=== PATIENT | female | born 1960 | race Caucasian/White ===

== ENCOUNTER 2019-05-09 17:45 | Inpatient (IN) | payer OTHER ==
[~2019-05-09] VITALS: Ht 160 cm; Wt 111.9 kg
[~2019-05-09 17:45] MED LIST: AMLO-150 PO; ASPI-496 PO; ATOR40TA78 PO; CARV-39 PO; CLON0.1T22 PO; FURO20TA3 PO; GABA300C10 PO; GLYB5TAB3 PO; INSU100I32 SC; IVOKANA PO; LEVO175T5 PO; LISI-170 PO; METF10002 PO; MULT-642 PO; MULT-806 PO; POTASSIUM; PRAM0.12 PO; PRAM0.125 PO; [UNRECOGNIZED DRUG - OTHER] PO
[2019-05-09] MEDS ORDERED: METH500T7 PO (18:18)
[2019-05-09] MEDS ORDERED: LOSA50TA14 PO (18:18)
[2019-05-09] MEDS ORDERED: FUROSEMIDE 40 MG/4 ML ONE (18:24)
[2019-05-09] MEDS ORDERED: FUROSEMIDE 40 MG/4 ML IVPush ONE (18:30)
[2019-05-09 18:38] LABS: BASOPHILS # (AUTO) 0.01 x10^3/uL (0-0.1); BASOPHILS % (AUTO) 0 % (0-1); EOSINOPHILS # (AUTO) 0.26 x10^3/uL (0-0.4); EOSINOPHILS % (AUTO) 3 % (1-7); LYMPHOCYTES # (AUTO) 1.21 x10^3/uL (1-3.4); LYMPHOCYTES % (AUTO) 12 % (22-44); MD NO; MEAN CORPUSCULAR HEMOGLOBIN 32.9 pg (27.0-34.8); MEAN CORPUSCULAR HGB CONC 33.6 g/dL (32.4-35.8); MEAN CORPUSCULAR VOLUME 97.9 fL (80-100); MEAN PLATELET VOLUME 7.9 fL (7.4-10.4); MONOCYTES # (AUTO) 0.64 x10^3/uL (0.2-0.8); MONOCYTES % (AUTO) 6 % (2-9); NEUTROPHILS # (AUTO) 8.15 x10^3/uL (1.8-6.8); NEUTROPHILS % (AUTO) 79 % (42-75); PLATELET COUNT 268 x10^3/uL (130-400); RED BLOOD COUNT 3.88 x10^6/uL (3.82-5.3); RED CELL DISTRIBUTION WIDTH 14.1 % (9.6-15.2)
[2019-05-09 18:46] LABS: ALANINE AMINOTRANSFERASE 27 U/L (12-78); ALBUMIN 3.5 g/dL (3.4-5.0); ANION GAP 7 mmol/L (5-15); CALCIUM 8.5 mg/dL (8.5-10.1); CHLORIDE 106 mmol/L (98-107)
[2019-05-09 18:51] LABS: ALKALINE PHOSPHATASE 86 U/L (45-117); BILIRUBIN,TOTAL 0.7 mg/dL (0.2-1.0); CREATININE 2.42 mg/dL (0.55-1.02); TOTAL PROTEIN 6.8 g/dL (6.4-8.2); TROPONIN I < 0.015 ng/mL (0.000-0.045)
--- NOTE | 2019-05-09 19:45 | NUR ---
PT WITH NON CONTRACTED INSURANCE. CALLED [facility] [place], SPOKE WITH RUSTAM WHO GAVE VERBAL DENIAL FOR TRANSFER AT 1942. CALLED [facility], SPOKE WITH INDIRA COOLEY, WHO GAVE VERBAL DENIAL FOR TRANSFER OF PT.
--- NOTE | 2019-05-09 19:57 | NUR ---
PT UPDATED ON POC. PT PROVIDED CRACKERS. INTERNAL MED MD AT BEDSIDE TO ASSESS AND ADMIT PATIENT.
[2019-05-09] MEDS ORDERED: hydrALAzine 20 MG/ML, 1ML IVPush PRN (20:30)
[2019-05-09 20:47] LABS: TROPONIN I < 0.015 ng/mL (0.000-0.045)
[2019-05-09 21:00] LABS: HEMOGLOBIN A1C 6.6 % (4.2-6.3)
[2019-05-09] MEDS ORDERED: LEVOTHYROXINE 137 MCG TABLET PO SCH (21:00)
[2019-05-09] MEDS: INSULIN LISPRO 100 UNITS/ML, PEN SQ-INSULIN SCH (21:00)
[2019-05-09 21:13] VITALS: BP 177/84
[2019-05-09] MEDS: NICOTINE 14MG/24 HR PATCH.TD24 TD SCH (21:46)
[2019-05-09] MEDS: METHOCARBAMOL 500 MG TABLET PO SCH (21:46)
[2019-05-09] MEDS: GABAPENTIN 300 MG CAPSULE PO SCH (21:46)
[2019-05-09] MEDS: HEPARIN 5,000 UNITS/ML, 1ML SQ SCH (21:47)
[2019-05-09] MEDS: CARVEDILOL 25 MG TABLET PO SCH (21:47)
[2019-05-09] MEDS: ATORVASTATIN 40 MG TABLET PO SCH (21:47)
[2019-05-09 22:17] VITALS: BP 177/84
[2019-05-10 01:20] VITALS: BP 158/85
[2019-05-10 02:56] LABS: BASOPHILS # (AUTO) 0.03 x10^3/uL (0-0.1); BASOPHILS % (AUTO) 0 % (0-1); EOSINOPHILS # (AUTO) 0.16 x10^3/uL (0-0.4); EOSINOPHILS % (AUTO) 2 % (1-7); LYMPHOCYTES # (AUTO) 0.83 x10^3/uL (1-3.4); LYMPHOCYTES % (AUTO) 9 % (22-44); MD NO; MEAN CORPUSCULAR HEMOGLOBIN 32.4 pg (27.0-34.8); MEAN CORPUSCULAR HGB CONC 32.7 g/dL (32.4-35.8); MEAN PLATELET VOLUME 8.4 fL (7.4-10.4); MONOCYTES # (AUTO) 0.46 x10^3/uL (0.2-0.8); MONOCYTES % (AUTO) 5 % (2-9); NEUTROPHILS # (AUTO) 7.98 x10^3/uL (1.8-6.8); NEUTROPHILS % (AUTO) 84 % (42-75); PLATELET COUNT 259 x10^3/uL (130-400); RED BLOOD COUNT 3.98 x10^6/uL (3.82-5.3); RED CELL DISTRIBUTION WIDTH 14.1 % (9.6-15.2)
[2019-05-10 03:09] LABS: ALANINE AMINOTRANSFERASE 28 U/L (12-78); ALBUMIN 3.5 g/dL (3.4-5.0); ANION GAP 7 mmol/L (5-15); CALCIUM 8.6 mg/dL (8.5-10.1); CHLORIDE 106 mmol/L (98-107)
[2019-05-10 03:12] LABS: ALKALINE PHOSPHATASE 87 U/L (45-117); BILIRUBIN,TOTAL 0.7 mg/dL (0.2-1.0); CHOL/HDL RATIO 3.2; CHOLESTEROL, TOTAL 104 mg/dL (140-239); CREATININE 2.52 mg/dL (0.55-1.02); HDL CHOL % 32 % (28-40); HDL CHOLESTEROL (DIRECT) 33 mg/dL (40-60); LDL CHOLESTEROL,CALCULATED 47 mg/dL (54-169); LDL/HDL RATIO 1.4 (0.5-3.0); TRIGLYCERIDES 122 mg/dL (50-200); VLDL CHOLESTEROL 24 mg/dL (0-25)
[2019-05-10 03:52] LABS: TROPONIN I < 0.015 ng/mL (0.000-0.045)
[2019-05-10] MEDS: ASPIRIN 325 MG TABLET EC PO SCH (05:24)
[2019-05-10] MEDS: HEPARIN 5,000 UNITS/ML, 1ML SQ SCH ×3 (05:25→21:10)
[2019-05-10] MEDS: FUROSEMIDE 40 MG/4 ML IV SCH ×2 (06:25→16:52)
[2019-05-10 06:51] VITALS: BP 160/88
[2019-05-10] MEDS: INSULIN LISPRO 100 UNITS/ML, PEN SQ-INSULIN SCH ×4 (07:00→22:02)
[2019-05-10] MEDS: INSULIN DEGLUDEC HOMEINJ SCH (09:00)
[2019-05-10] MEDS: [UNRECOGNIZED DRUG - OTHER] HOMEINJ SCH (09:00)
[2019-05-10] MEDS ORDERED: TEMPLATE NON-FORMULARY MED. (Insulin Degludec (Tresiba Flextouch U-100) 20 UNITS) SC SCH (09:00)
[2019-05-10] MEDS: METHOCARBAMOL 500 MG TABLET PO SCH ×2 (10:02→21:10)
[2019-05-10] MEDS: MULTIVITAMIN 1 TABLET PO SCH (10:04)
[2019-05-10] MEDS: AMLODIPINE 10 MG TAB PO SCH (10:05)
[2019-05-10] MEDS: GABAPENTIN 300 MG CAPSULE PO SCH ×3 (10:05→21:10)
[2019-05-10] MEDS: CARVEDILOL 25 MG TABLET PO SCH ×2 (10:06→21:10)
[2019-05-10 12:22] VITALS: BP 162/68
[2019-05-10] MEDS: LOSARTAN 50MG TABLET PO SCH (13:29)
[2019-05-10 18:50] VITALS: BP 168/73
[2019-05-10] MEDS: LEVOTHYROXINE 150 MCG TABLET PO SCH (21:10)
[2019-05-10] MEDS: ATORVASTATIN 40 MG TABLET PO SCH (21:10)
[2019-05-10] MEDS: NICOTINE 14MG/24 HR PATCH.TD24 TD SCH (21:11)
[2019-05-11 00:20] VITALS: BP 166/70
[2019-05-11] MEDS: ASPIRIN 325 MG TABLET EC PO SCH (05:11)
[2019-05-11] MEDS: HEPARIN 5,000 UNITS/ML, 1ML SQ SCH ×3 (05:12→20:18)
[2019-05-11 05:34] LABS: BASOPHILS # (AUTO) 0.02 x10^3/uL (0-0.1); BASOPHILS % (AUTO) 0 % (0-1); EOSINOPHILS # (AUTO) 0.19 x10^3/uL (0-0.4); EOSINOPHILS % (AUTO) 2 % (1-7); LYMPHOCYTES # (AUTO) 0.93 x10^3/uL (1-3.4); LYMPHOCYTES % (AUTO) 12 % (22-44); MD NO; MEAN CORPUSCULAR HEMOGLOBIN 32.8 pg (27.0-34.8); MEAN CORPUSCULAR HGB CONC 33.2 g/dL (32.4-35.8); MEAN PLATELET VOLUME 8.8 fL (7.4-10.4); MONOCYTES # (AUTO) 0.49 x10^3/uL (0.2-0.8); MONOCYTES % (AUTO) 6 % (2-9); NEUTROPHILS # (AUTO) 6.27 x10^3/uL (1.8-6.8); NEUTROPHILS % (AUTO) 79 % (42-75); PLATELET COUNT 234 x10^3/uL (130-400); RED BLOOD COUNT 3.98 x10^6/uL (3.82-5.3); RED CELL DISTRIBUTION WIDTH 14.3 % (9.6-15.2)
[2019-05-11 05:45] LABS: ALBUMIN 3.4 g/dL (3.4-5.0); ANION GAP 7 mmol/L (5-15); CALCIUM 8.3 mg/dL (8.5-10.1); CHLORIDE 107 mmol/L (98-107)
[2019-05-11 05:50] LABS: ALANINE AMINOTRANSFERASE 24 U/L (12-78); ALKALINE PHOSPHATASE 84 U/L (45-117); BILIRUBIN,TOTAL 0.6 mg/dL (0.2-1.0); CREATININE 2.33 mg/dL (0.55-1.02); TOTAL PROTEIN 7.1 g/dL (6.4-8.2)
[2019-05-11] MEDS: INSULIN LISPRO 100 UNITS/ML, PEN SQ-INSULIN SCH ×4 (07:00→20:20)
[2019-05-11 07:05] VITALS: BP 173/76
[2019-05-11] MEDS ORDERED: REGADENOSON 0.4 MG/5 ML SYRINGE ONE (08:19)
[2019-05-11] MEDS: LOSARTAN 50MG TABLET PO SCH (08:32)
[2019-05-11] MEDS: MULTIVITAMIN 1 TABLET PO SCH (08:32)
[2019-05-11] MEDS: AMLODIPINE 10 MG TAB PO SCH (08:32)
[2019-05-11] MEDS: FUROSEMIDE 40 MG/4 ML IV SCH ×2 (08:32→16:04)
[2019-05-11] MEDS: GABAPENTIN 300 MG CAPSULE PO SCH ×3 (08:32→20:19)
[2019-05-11] MEDS: METHOCARBAMOL 500 MG TABLET PO SCH ×2 (08:33→20:18)
[2019-05-11] MEDS: CARVEDILOL 25 MG TABLET PO SCH ×2 (08:40→20:19)
[2019-05-11] MEDS: [UNRECOGNIZED DRUG - OTHER] HOMEINJ SCH (09:00)
[2019-05-11] MEDS: INSULIN DEGLUDEC HOMEINJ SCH (09:00)
[2019-05-11 12:56] VITALS: BP 174/76
[2019-05-11 18:52] VITALS: BP 178/83
[2019-05-11] MEDS: ATORVASTATIN 40 MG TABLET PO SCH (20:19)
[2019-05-11] MEDS: LEVOTHYROXINE 150 MCG TABLET PO SCH (20:19)
[2019-05-11] MEDS: NICOTINE 14MG/24 HR PATCH.TD24 TD SCH (20:20)
[2019-05-11 22:26] VITALS: BP 166/77
[2019-05-12 00:34] VITALS: BP 164/80
[2019-05-12] MEDS: HEPARIN 5,000 UNITS/ML, 1ML SQ SCH (05:23)
[2019-05-12] MEDS: ASPIRIN 325 MG TABLET EC PO SCH (05:24)
[2019-05-12 05:59] LABS: BASOPHILS # (AUTO) 0.04 x10^3/uL (0-0.1); BASOPHILS % (AUTO) 1 % (0-1); EOSINOPHILS # (AUTO) 0.16 x10^3/uL (0-0.4); EOSINOPHILS % (AUTO) 2 % (1-7); LYMPHOCYTES # (AUTO) 0.82 x10^3/uL (1-3.4); LYMPHOCYTES % (AUTO) 9 % (22-44); MD NO; MEAN CORPUSCULAR HEMOGLOBIN 32.1 pg (27.0-34.8); MEAN CORPUSCULAR VOLUME 97.5 fL (80-100); MEAN PLATELET VOLUME 8.6 fL (7.4-10.4); MONOCYTES # (AUTO) 0.69 x10^3/uL (0.2-0.8); MONOCYTES % (AUTO) 8 % (2-9); NEUTROPHILS # (AUTO) 6.94 x10^3/uL (1.8-6.8); NEUTROPHILS % (AUTO) 80 % (42-75); PLATELET COUNT 233 x10^3/uL (130-400); RED BLOOD COUNT 3.92 x10^6/uL (3.82-5.3); RED CELL DISTRIBUTION WIDTH 13.9 % (9.6-15.2)
[2019-05-12 06:33] LABS: ALBUMIN 3.4 g/dL (3.4-5.0); ANION GAP 6 mmol/L (5-15); CALCIUM 8.4 mg/dL (8.5-10.1); CHLORIDE 107 mmol/L (98-107)
[2019-05-12 06:39] LABS: ALANINE AMINOTRANSFERASE 23 U/L (12-78); ALKALINE PHOSPHATASE 77 U/L (45-117); BILIRUBIN,TOTAL 0.9 mg/dL (0.2-1.0); CREATININE 2.25 mg/dL (0.55-1.02); TOTAL PROTEIN 6.8 g/dL (6.4-8.2)
[2019-05-12 06:50] VITALS: BP 170/51
[2019-05-12] MEDS: INSULIN LISPRO 100 UNITS/ML, PEN SQ-INSULIN SCH ×2 (07:08→11:19)
[2019-05-12] MEDS: MULTIVITAMIN 1 TABLET PO SCH (07:44)
[2019-05-12] MEDS: CARVEDILOL 25 MG TABLET PO SCH (07:44)
[2019-05-12] MEDS: GABAPENTIN 300 MG CAPSULE PO SCH (07:44)
[2019-05-12] MEDS: FUROSEMIDE 40 MG/4 ML IV SCH (07:44)
[2019-05-12] MEDS: METHOCARBAMOL 500 MG TABLET PO SCH (07:44)
[2019-05-12] MEDS: AMLODIPINE 10 MG TAB PO SCH (07:44)
[2019-05-12] MEDS: [UNRECOGNIZED DRUG - OTHER] HOMEINJ SCH (07:45)
[2019-05-12] MEDS: INSULIN DEGLUDEC HOMEINJ SCH (07:45)
[2019-05-12] MEDS ORDERED: LOSARTAN 50MG TABLET PO SCH (09:00)
[2019-05-12] MEDS ORDERED: POTASSIUM CHLORIDE 20 MEQ TAB.ER.PRT PO SCH (11:30)
[2019-05-12] MEDS ORDERED: LOSA50TA14 PO (11:38)
[2019-05-12] MEDS ORDERED: FURO20TA3 PO (11:38)
[2019-05-12] MEDS ORDERED: hydrALAzine 20 MG/ML, 1ML IV ONE (12:00)
[2019-05-12] MEDS ORDERED: FUROSEMIDE 40 MG TABLET PO SCH (17:00)
== END 2019-05-12 12:40 | disposition home or self-care (01) | DRG 291 ==
LOC: ED 19:11 → EDIP 19:30 → 5SO 20:41 → DCLOUNGE 05-12 12:30
PROVIDERS: ADMIT Family Medicine; ATTEND Family Medicine
DX: I13.0 Hypertensive heart and chronic kidney disease with heart failure and stage 1 through stage 4 chronic kidney disease, or unspecified chronic kidney disease (principal); I50.23 Acute on chronic systolic (congestive) heart failure; J96.00 Acute respiratory failure, unspecified whether with hypoxia or hypercapnia; N18.4 Chronic kidney disease, stage 4 (severe); I31.3 Pericardial effusion (noninflammatory); Z68.41 Body mass index [BMI] 40.0-44.9, adult; E78.5 Hyperlipidemia, unspecified; E03.9 Hypothyroidism, unspecified; E11.22 Type 2 diabetes mellitus with diabetic chronic kidney disease; Q96.9 Turner's syndrome, unspecified; E11.51 Type 2 diabetes mellitus with diabetic peripheral angiopathy without gangrene; F17.210 Nicotine dependence, cigarettes, uncomplicated; I25.10 Atherosclerotic heart disease of native coronary artery without angina pectoris; I08.0 Rheumatic disorders of both mitral and aortic valves; E66.01 Morbid (severe) obesity due to excess calories; I70.0 Atherosclerosis of aorta; Z95.5 Presence of coronary angioplasty implant and graft; Z79.82 Long term (current) use of aspirin; Z88.5 Allergy status to narcotic agent; Z82.49 Family history of ischemic heart disease and other diseases of the circulatory system; Z79.84 Long term (current) use of oral hypoglycemic drugs; Z79.899 Other long term (current) drug therapy
CPT/HCPCS: 36415; 71045; 78452; 80053; 80061; 82962; 83036; 83880; 84439; 84443; 84484; 85025; 93005; 93017; 93306; 93880; 99285; G0378; J1644; J1940; J2785; A9502; J0360; J1815

== ENCOUNTER → 2020-09-29 | Outpatient (CLI) | payer MEDICARE ==
[~2020-09-29] MED LIST changes: +ACET-1600 PO; +ALLO100T30 PO; +AMLO-211 PO; +ASPI81TA45 PO; +ATOR80TA PO; +CLON0.2T PO; +CLOP75TA PO; +FURO-92 PO; +HYDR100T25 PO; +LEVO137T3 PO; +LOSA50TA14 PO; +METH500T7 PO; +MULT-706 PO; +NITR0.4T28 SL; +SACU1TAB PO; +TRIA15OI TP
== END | disposition home or self-care (01) ==
LOC: STAR 12:53
PROVIDERS: ATTEND Surgery
DX: Z20.822 Contact with and (suspected) exposure to COVID-19 (principal); N18.6 End stage renal disease
CPT/HCPCS: 87635

== ENCOUNTER 2020-10-04 14:32 | Inpatient (IN) | payer MEDICARE ==
[2020-09-29 14:28] LABS: ALANINE AMINOTRANSFERASE 20 U/L (12-78); ALBUMIN 3.6 g/dL (3.4-5.0); ANION GAP 9 mmol/L (5-15); CALCIUM 9.2 mg/dL (8.5-10.1); CHLORIDE 97 mmol/L (98-107); CREATININE 6.18 mg/dL (0.55-1.02)
[2020-09-29 14:30] LABS: ALKALINE PHOSPHATASE 106 U/L (45-117); BILIRUBIN,TOTAL 0.4 mg/dL (0.2-1.0); TOTAL PROTEIN 7.7 g/dL (6.4-8.2)
[2020-09-29 15:05] LABS: INTERNATIONAL NORMALIZED RATIO 0.94 (0.93-1.1); PROTHROMBIN TIME 10.1 Seconds (9.6-11.5)
[2020-09-29 17:12] LABS: BASOPHILS % (AUTO) 1 % (0-1); EOSINOPHILS % (AUTO) 3 % (1-7); LYMPHOCYTES % (AUTO) 15 % (22-44); MEAN CORPUSCULAR HEMOGLOBIN 37.3 pg (27.0-34.8); MEAN CORPUSCULAR HGB CONC 34.2 g/dL (32.4-35.8); MEAN PLATELET VOLUME 7.9 fL (7.4-10.4); MONOCYTES % (AUTO) 11 % (2-9); NEUTROPHILS % (AUTO) 71 % (42-75); PLATELET COUNT 294 x10^3/uL (130-400); RED CELL DISTRIBUTION WIDTH 15.6 % (9.6-15.2)
[2020-09-29 17:40] LABS: MD MORPH REVIEW ONLY
[2020-09-29 17:44] LABS: POLYCHROMASIA 1+
[2020-09-29 17:47] LABS: <PLATELET ESTIMATE> ADEQUATE; <PLT MORPHOLOGY> NORMAL PLT MORPH
[~2020-10-04] VITALS: Ht 152.4 cm; Wt 100.0 kg
[~2020-10-04 14:32] MED LIST changes: +METH-639 PO; -METH500T7 PO
[2020-10-04] MEDS ORDERED: CHLORHEXIDINE 15 ML UDC ONE (14:53)
[2020-10-04] MEDS ORDERED: CHLORHEXIDINE 15 ML UDC MM STA (15:23)
[2020-10-04] MEDS ORDERED: SODIUM CHLORIDE 0.9% 1,000 ML IV SCH (15:30)
[2020-10-04] MEDS ORDERED: THROMBIN 5,000 UNIT VIAL TP ONE (17:25)
[2020-10-04] MEDS ORDERED: LIDOCAINE/PF 1%, 30ML ONE (17:25)
[2020-10-04] MEDS ORDERED: PAPAVERINE 30 MG/ML, 2ML ONE (17:25)
[2020-10-04] MEDS ORDERED: BUPIVACAINE/PF 0.25% ONE (17:25)
[2020-10-04] MEDS ORDERED: PROTAMINE SULFATE 10 MG/ML, 5ML ONE (17:25)
[2020-10-04] MEDS ORDERED: HEPARIN 1,000 UNITS/ML, 10ML ONE (17:25)
[2020-10-04] MEDS ORDERED: FENTANYL PF 100 MCG/2ML ONE ×3 (17:32→19:58)
[2020-10-04] MEDS ORDERED: ROCURONIUM 10 MG/ML,10ML ONE (17:55)
[2020-10-04] MEDS ORDERED: CEFAZOLIN 1,000 MG ONE (17:55)
[2020-10-04] MEDS ORDERED: HYDR-1067 PO (17:59)
[2020-10-04] MEDS ORDERED: hydrALAzine 20 MG/ML, 1ML ONE ×4 (18:24→22:00)
[2020-10-04] MEDS ORDERED: DEXAMETHASONE 4 MG/ML, 5ML ONE ×2 (18:25→19:24)
[2020-10-04] MEDS ORDERED: PROMETHAZINE 25 MG/ML, 1ML IVPush PRN (18:30)
[2020-10-04] MEDS ORDERED: OXYcodone 5 MG/5 ML ORAL.SOL UDC PO PRN (18:30)
[2020-10-04] MEDS ORDERED: DIAZEPAM 5 MG/ML, 2ML IVPush PRN (18:30)
[2020-10-04] MEDS ORDERED: EPHEDRINE 50 MG/ML, 1ML IVPush PRN (18:30)
[2020-10-04] MEDS ORDERED: MIDAZOLAM 1 MG/ML, 2ML IV PRN (18:30)
[2020-10-04] MEDS ORDERED: MEPERIDINE/PF 25MG/0.5ML IVPush PRN (18:30)
[2020-10-04] MEDS ORDERED: DIPHENHYDRAMINE 50 MG/ML, 1ML IVPush PRN (18:30)
[2020-10-04] MEDS ORDERED: ALBUTEROL SULFATE 2.5 MG/3 ML NPPB PRN (18:30)
[2020-10-04] MEDS ORDERED: ONDANSETRON 2MG/ML, 2ML IVPush PRN ×2 (18:30→23:00)
[2020-10-04] MEDS ORDERED: PROMETHAZINE 12.5 MG SUPP PR PRN (18:30)
[2020-10-04] MEDS ORDERED: FENTANYL PF 100 MCG/2ML IV PRN (18:30)
[2020-10-04] MEDS ORDERED: HYDROmorphone 1 MG/ML, 1ML INJ IVPush PRN (18:30)
[2020-10-04] MEDS ORDERED: PROPOFOL 10 MG/ML, 20ML ONE (19:24)
[2020-10-04] MEDS ORDERED: ONDANSETRON 2MG/ML, 2ML ONE ×2 (19:24)
[2020-10-04] MEDS ORDERED: SUCCINYLCHOLINE 20 MG/ML, 10ML ONE (19:24)
[2020-10-04] MEDS ORDERED: LABETALOL 5MG/ML, 20ML ONE (19:46)
[2020-10-04] MEDS: LABETALOL 5MG/ML, 20ML IV PRN ×3 (19:50→20:56)
[2020-10-04] MEDS ORDERED: NITROGLYCERIN 0.4 MG BOTTLE (25 TABS) SL ONE (20:02)
[2020-10-04] MEDS: NITROGLYCERIN 0.4 MG BOTTLE (25 TABS) SL PRN ×3 (20:03→20:13)
[2020-10-04] MEDS ORDERED: MORPHINE SULFATE 4 MG/ML, 1ML ONE ×2 (20:40→21:18)
[2020-10-04] MEDS: morphine SULFATE 10 MG/ML, 1ML IVPush PRN ×3 (20:41→21:19)
[2020-10-04] MEDS: hydrALAzine 20 MG/ML, 1ML IV PRN ×2 (20:50→21:43)
[2020-10-04] MEDS ORDERED: ASPIRIN 325 MG TABLET EC ONE (21:34)
[2020-10-04] MEDS ORDERED: hydrALAzine 20 MG/ML, 1ML IV ONE (21:58)
[2020-10-04] MEDS ORDERED: HEPARIN 5,000 UNITS/ML, 1ML IV ONE (22:00)
[2020-10-04] MEDS ORDERED: ASPIRIN 325 MG TABLET PO PRN (22:00)
[2020-10-04] MEDS ORDERED: HEPARIN 5,000 UNITS/ML, 1ML IV PRN (22:00)
[2020-10-04 22:20] VITALS: BP 166/80
[2020-10-04] MEDS ORDERED: HEPARIN 25,000 UNITS/250ML PMX 250 ML IV PRN (22:30)
[2020-10-04] MEDS ORDERED: NITROGLYCERIN 0.4 MG BOTTLE (25 TABS) SL PRN ×2 (22:30→23:00)
[2020-10-04] MEDS ORDERED: hydrALAzine 20 MG/ML, 1ML IV PRN (22:30)
[2020-10-04] MEDS ORDERED: morphine SULFATE 10 MG/ML, 1ML IV PRN (22:30)
[2020-10-04] MEDS: ATORVASTATIN 80 MG TABLET PO SCH (22:46)
[2020-10-04] MEDS ORDERED: hydrALAzine 20 MG/ML, 1ML IVPush PRN (23:00)
[2020-10-04] MEDS ORDERED: LABETALOL 5MG/ML, 20ML IVPush PRN (23:00)
[2020-10-04] MEDS ORDERED: POLYETHYLENE GLYCOL 17 GM PACKET PO PRN (23:00)
[2020-10-04] MEDS: INSULIN LISPRO 100 UNITS/ML, PEN SQ-INSULIN SCH (23:00)
[2020-10-04] MEDS ORDERED: DOCUSATE 100 MG CAPSULE PO PRN (23:00)
[2020-10-04] MEDS ORDERED: PROMETHAZINE 25 MG/ML, 1ML IM PRN (23:00)
[2020-10-04] MEDS ORDERED: METHOCARBAMOL MC SCH (23:00)
[2020-10-04] MEDS ORDERED: BISACODYL 10 MG SUPP PR PRN (23:00)
[2020-10-04] MEDS: TRIAMCINOLONE OINT 0.1%, 15GM TP SCH (23:00)
[2020-10-04] MEDS ORDERED: OXYcodone IR 5MG TABLET PO PRN (23:00)
[2020-10-04] MEDS ORDERED: HYDROcodone/APAP 5/325 TABLET PO PRN (23:00)
[2020-10-04] MEDS ORDERED: ONDANSETRON ODT 4 MG PO PRN (23:00)
[2020-10-04] MEDS ORDERED: morphine SULFATE 10 MG/ML, 1ML IVPush PRN (23:00)
[2020-10-04] MEDS ORDERED: METHOCARBAMOL 500 MG TABLET PO SCH (23:00)
[2020-10-04] MEDS: FUROSEMIDE 40 MG TABLET PO SCH (23:06)
[2020-10-04] MEDS: CARVEDILOL 25 MG TABLET PO SCH (23:06)
[2020-10-04] MEDS: GABAPENTIN 300 MG CAPSULE PO SCH (23:06)
[2020-10-04 23:22] LABS: BASOPHILS % (AUTO) 1 % (0-1); EOSINOPHILS % (AUTO) 0 % (1-7); LYMPHOCYTES % (AUTO) 3 % (22-44); MEAN CORPUSCULAR HEMOGLOBIN 37.1 pg (27.0-34.8); MEAN CORPUSCULAR HGB CONC 34.1 g/dL (32.4-35.8); MEAN PLATELET VOLUME 8.1 fL (7.4-10.4); MONOCYTES % (AUTO) 1 % (2-9); NEUTROPHILS % (AUTO) 96 % (42-75); PLATELET COUNT 277 x10^3/uL (130-400); RED BLOOD COUNT 2.81 x10^6/uL (3.82-5.3); RED CELL DISTRIBUTION WIDTH 15.2 % (9.6-15.2)
[2020-10-04 23:24] LABS: MD NO
[2020-10-04 23:32] LABS: ANION GAP 10 mmol/L (5-15); CALCIUM 8.5 mg/dL (8.5-10.1); CHLORIDE 103 mmol/L (98-107); CHOLESTEROL, TOTAL 142 mg/dL (140-239); CREATININE 5.85 mg/dL (0.55-1.02); TRIGLYCERIDES 215 mg/dL (50-200); VLDL CHOLESTEROL 43 mg/dL (0-25)
[2020-10-04 23:37] LABS: CHOL/HDL RATIO 2.8; HDL CHOL % 36 % (28-40); HDL CHOLESTEROL (DIRECT) 51 mg/dL (40-60); LDL CHOLESTEROL,CALCULATED 48 mg/dL (54-169); LDL/HDL RATIO 0.9 (0.5-3.0); TROPONIN I 0.117 ng/mL (0.000-0.045)
[2020-10-04] MEDS: SACUBITRIL/VALSARTAN 24MG-26MG TAB PO SCH (23:45)
[2020-10-04] MEDS: PRAMIPEXOLE 0.125MG TABLET PO SCH (23:45)
[2020-10-04] MEDS: NITROGLYCERIN OINT 2%, 1GM TP SCH (23:52)
[2020-10-05 00:07] VITALS: BP 164/83
[2020-10-05] MEDS ORDERED: METHOCARBAMOL 500 MG TABLET PO PRN (00:30)
[2020-10-05 03:55] VITALS: BP 128/73
[2020-10-05] MEDS: NITROGLYCERIN OINT 2%, 1GM TP SCH ×2 (04:30→10:21)
[2020-10-05 04:39] LABS: BASOPHILS % (AUTO) 0 % (0-1); EOSINOPHILS % (AUTO) 0 % (1-7); LYMPHOCYTES % (AUTO) 3 % (22-44); MEAN CORPUSCULAR HEMOGLOBIN 37.7 pg (27.0-34.8); MEAN CORPUSCULAR HGB CONC 34.4 g/dL (32.4-35.8); MEAN PLATELET VOLUME 7.9 fL (7.4-10.4); MONOCYTES % (AUTO) 1 % (2-9); NEUTROPHILS % (AUTO) 95 % (42-75); PLATELET COUNT 267 x10^3/uL (130-400); RED BLOOD COUNT 2.54 x10^6/uL (3.82-5.3); RED CELL DISTRIBUTION WIDTH 14.8 % (9.6-15.2)
[2020-10-05 04:47] LABS: MD SCAN
[2020-10-05 04:49] LABS: ALANINE AMINOTRANSFERASE 41 U/L (12-78); ALBUMIN 3.2 g/dL (3.4-5.0); ANION GAP 10 mmol/L (5-15); CALCIUM 8.3 mg/dL (8.5-10.1); CHLORIDE 102 mmol/L (98-107); CREATININE 6.05 mg/dL (0.55-1.02)
[2020-10-05 04:59] LABS: ALKALINE PHOSPHATASE 117 U/L (45-117); BILIRUBIN,TOTAL 0.5 mg/dL (0.2-1.0); TOTAL PROTEIN 6.9 g/dL (6.4-8.2)
[2020-10-05] MEDS ORDERED: SODIUM POLYSTYRENE SULFONATE ORAL SUSP PO ONE (06:30)
[2020-10-05 06:40] VITALS: BP 111/64
[2020-10-05] MEDS: CARVEDILOL 25 MG TABLET PO SCH ×2 (06:43→21:00)
[2020-10-05 06:48] VITALS: BP 113/68
[2020-10-05] MEDS: INSULIN LISPRO 100 UNITS/ML, PEN SQ-INSULIN SCH ×4 (07:00→22:37)
[2020-10-05] MEDS ORDERED: HYDROcodone/APAP 5/325 TABLET PO PRN (08:00)
[2020-10-05] MEDS: TRIAMCINOLONE OINT 0.1%, 15GM TP SCH ×2 (09:00→21:00)
[2020-10-05] MEDS: MULTIVITAMIN 1 TABLET PO SCH (10:18)
[2020-10-05] MEDS: ALLOPURINOL 100 MG TABLET PO SCH (10:18)
[2020-10-05] MEDS: SACUBITRIL/VALSARTAN 24MG-26MG TAB PO SCH ×2 (10:18→21:00)
[2020-10-05] MEDS: AMLODIPINE 10 MG TAB PO SCH (10:19)
[2020-10-05] MEDS: FUROSEMIDE 40 MG TABLET PO SCH ×2 (10:19→21:00)
[2020-10-05] MEDS: LEVOTHYROXINE 137 MCG TABLET PO SCH (10:19)
[2020-10-05] MEDS: CLOPIDOGREL 75 MG TABLET PO SCH (10:19)
[2020-10-05] MEDS: GABAPENTIN 300 MG CAPSULE PO SCH ×3 (10:19→22:29)
[2020-10-05] MEDS ORDERED: NICOTINE 14MG/24 HR PATCH.TD24 TD SCH (13:00)
[2020-10-05 13:10] VITALS: BP 116/64
[2020-10-05] MEDS ORDERED: LIDOCAINE-MPF 1%, 5ML ONE (14:50)
[2020-10-05] MEDS ORDERED: MIDAZOLAM 1 MG/ML, 5ML ONE (14:50)
[2020-10-05] MEDS ORDERED: FENTANYL PF 100 MCG/2ML ONE (14:50)
[2020-10-05] MEDS ORDERED: VERAPAMIL 2.5 MG/ML, 2ML ONE (14:50)
[2020-10-05] MEDS ORDERED: HEPARIN 1,000 UNITS/ML, 10ML ONE (14:51)
[2020-10-05] MEDS ORDERED: BIVALIRUDIN 250 MG ONE (14:51)
[2020-10-05] MEDS ORDERED: LIDOCAINE 2%, 20ML ONE (15:53)
[2020-10-05 22:06] VITALS: BP 106/63
[2020-10-05] MEDS: ATORVASTATIN 80 MG TABLET PO SCH (22:29)
[2020-10-05] MEDS: ACETAMINOPHEN 325 MG TABLET PO PRN (22:36)
[2020-10-06] MEDS: PRAMIPEXOLE 0.125MG TABLET PO SCH (00:09)
[2020-10-06 00:11] VITALS: BP 90/46
[2020-10-06 05:01] LABS: BASOPHILS % (AUTO) 1 % (0-1); EOSINOPHILS % (AUTO) 0 % (1-7); LYMPHOCYTES % (AUTO) 15 % (22-44); MEAN CORPUSCULAR HEMOGLOBIN 37.9 pg (27.0-34.8); MEAN CORPUSCULAR HGB CONC 34.9 g/dL (32.4-35.8); MEAN PLATELET VOLUME 7.8 fL (7.4-10.4); MONOCYTES % (AUTO) 11 % (2-9); NEUTROPHILS % (AUTO) 73 % (42-75); PLATELET COUNT 234 x10^3/uL (130-400); RED BLOOD COUNT 2.26 x10^6/uL (3.82-5.3); RED CELL DISTRIBUTION WIDTH 14.5 % (9.6-15.2)
[2020-10-06 05:02] LABS: MD NO
[2020-10-06 05:12] LABS: ALBUMIN 2.8 g/dL (3.4-5.0); ANION GAP 7 mmol/L (5-15); CALCIUM 7.6 mg/dL (8.5-10.1); CHLORIDE 97 mmol/L (98-107); CREATININE 4.13 mg/dL (0.55-1.02)
[2020-10-06] MEDS: CARVEDILOL 25 MG TABLET PO SCH (06:14)
[2020-10-06] MEDS: ACETAMINOPHEN 325 MG TABLET PO PRN (06:14)
[2020-10-06] MEDS: INSULIN LISPRO 100 UNITS/ML, PEN SQ-INSULIN SCH ×2 (07:00→11:00)
[2020-10-06 08:34] VITALS: BP 104/62
[2020-10-06] MEDS: MULTIVITAMIN 1 TABLET PO SCH (08:38)
[2020-10-06] MEDS: GABAPENTIN 300 MG CAPSULE PO SCH (08:38)
[2020-10-06] MEDS: SACUBITRIL/VALSARTAN 24MG-26MG TAB PO SCH (08:38)
[2020-10-06] MEDS: LEVOTHYROXINE 137 MCG TABLET PO SCH (08:38)
[2020-10-06] MEDS: ALLOPURINOL 100 MG TABLET PO SCH (08:39)
[2020-10-06] MEDS: CLOPIDOGREL 75 MG TABLET PO SCH (08:39)
[2020-10-06] MEDS: FUROSEMIDE 40 MG TABLET PO SCH (08:39)
[2020-10-06] MEDS: TRIAMCINOLONE OINT 0.1%, 15GM TP SCH (08:49)
[2020-10-06] MEDS: AMLODIPINE 10 MG TAB PO SCH (08:49)
[2020-10-06] MEDS ORDERED: FENTANYL REMOVE PATCH NOTE XX SCH (13:00)
== END 2020-10-06 12:46 | disposition left against medical advice (07) | DRG 264 ==
LOC: OR 14:32 → ORIP 21:57 → 5SO 22:30
PROVIDERS: ADMIT Surgery; ATTEND Internal Medicine
PROC: 03180KD Bypass Left Brachial Artery to Upper Arm Vein with Nonautologous Tissue Substitute, Open Approach (ICD-10-PCS; principal; 2020-10-04 17:30)
PROC: 4A023N7 Measurement of Cardiac Sampling and Pressure, Left Heart, Percutaneous Approach (ICD-10-PCS; 2020-10-05)
PROC: B2151ZZ Fluoroscopy of Left Heart using Low Osmolar Contrast (ICD-10-PCS; 2020-10-05)
PROC: B2111ZZ Fluoroscopy of Multiple Coronary Arteries using Low Osmolar Contrast (ICD-10-PCS; 2020-10-05)
PROC: 5A1D70Z Performance of Urinary Filtration, Intermittent, Less than 6 Hours Per Day (ICD-10-PCS; 2020-10-06)
DX: I21.4 Non-ST elevation (NSTEMI) myocardial infarction (principal); N18.6 End stage renal disease; I13.2 Hypertensive heart and chronic kidney disease with heart failure and with stage 5 chronic kidney disease, or end stage renal disease; Z68.41 Body mass index [BMI] 40.0-44.9, adult; I50.42 Chronic combined systolic (congestive) and diastolic (congestive) heart failure; Z99.2 Dependence on renal dialysis; D63.1 Anemia in chronic kidney disease; E03.9 Hypothyroidism, unspecified; E11.22 Type 2 diabetes mellitus with diabetic chronic kidney disease; E11.51 Type 2 diabetes mellitus with diabetic peripheral angiopathy without gangrene; E66.9 Obesity, unspecified; E78.5 Hyperlipidemia, unspecified; F17.210 Nicotine dependence, cigarettes, uncomplicated; I08.0 Rheumatic disorders of both mitral and aortic valves; I25.110 Atherosclerotic heart disease of native coronary artery with unstable angina pectoris; I25.2 Old myocardial infarction; I25.5 Ischemic cardiomyopathy; K21.9 Gastro-esophageal reflux disease without esophagitis; Z79.4 Long term (current) use of insulin; Z82.49 Family history of ischemic heart disease and other diseases of the circulatory system; Z95.5 Presence of coronary angioplasty implant and graft; Z88.6 Allergy status to analgesic agent
CPT/HCPCS: 36415; 80048; 80053; 80061; 80069; 82962; 83036; 83735; 84443; 84484; 85025; 85520; 85610; 85730; 86704; 86706; 87340; 93005; 93306; 93356; 93458; 99156; 99157; C1760; C1769; C1894; G0378; J0583; J0690; J1100; J1644; J2250; J2405; J2704; J2720; J3010; C1768; J0330; J0360; J1815; J2270; J2440; J7030; Q9967